=== PATIENT | male | born 1990 | race Caucasian/White ===

== ENCOUNTER 2017-04-18 13:39 | Emergency (ER) | payer BC, OTHER ==
[~2017-04-18] VITALS: Ht 185.4 cm; Wt 79.0 kg
[2017-04-18 13:41] VITALS: Ht 185.4 cm; Wt 79.0 kg
[2017-04-18] MEDS ORDERED: IBUPROFEN 600 MG TAB PO STA (13:59)
--- NOTE | 2017-04-18 13:59 | ERD ---
ER Documentation Chief Complaint Chief Complaint "twisted" L foot yesterday: swelling noted. + pulses HPI 26-year-old male presenting to the emergency department complaining of left foot pain status post twisting mechanism injury that occurred yesterday. Patient admits to having swelling. He denies any medications ROS All systems reviewed and are negative except as per history of present illness. Medications Home Meds Active Scripts Ibuprofen* (Ibuprofen*) 400 Mg Tablet, 400 MG PO Q6H Y for PAIN, #30 TAB Prov:DIEGO PANDEY PA-C 04/18/17 Physical Exam Vitals Vital Signs Date Time Temp Pulse Resp B/P Pulse Ox O2 Delivery O2 Flow Rate FiO2 04/18/17 13:41 98.6 105 16 124/83 98 Physical Exam Const: [] Head: Atraumatic Eyes: Normal Conjunctiva ENT: Normal External Ears, Nose and Mouth. Neck: Full range of motion..~ No meningismus. Resp: Clear to auscultation bilaterally Cardio: Regular rate and rhythm, no murmurs Abd: Soft, non tender, non distended. Normal bowel sounds Skin: No petechiae or rashes Back: No midline or flank tenderness Ext: Patient over the left lateral malleolus Neur: Awake and alert Psych: Normal Mood and Affect Results 24 hrs Current Medications Medications (Trade) Dose Ordered Sig/Dg Route PRN Reason Start Time Stop Time Status Last Admin Dose Admin Ibuprofen (Motrin) 600 mg ONCE STAT PO 04/18/17 13:59 04/18/17 14:04 DC 04/18/17 14:11 Procedures/MDM This is a 26-year-old male presenting to the emergency department with left foot pain likely due to ankle sprain. There is no evidence of compartment syndrome, neurologic injury, vascular injury, open joint, open fracture, tendon laceration, or foreign body due to physical examination and diagnostic testing. XR of the ankle was done and unremarkable. Patient was placed in a posterior splint or gianfranco bandage. Patient's extremity symptoms have stabilized while they have been evaluated in the department and are appropriate for outpatient follow up. Prescription ibuprofen was given to patient, discussed to return to the ED if not improving as expected or worsening symptoms Patient was neurovascularly intact pre and post treatment. Patient understood and agreed with this plan. X-ray Ankle 3V Interpreted by radiologist and myself: Bones: No fracture Joints: No dislocation Splint Assessment: Neurovascularly intact post splint placement with good fit. Departure Diagnosis: Primary Impression: Ankle sprain Condition: Stable DIEGO PANDEY PA-C Apr 18, 2017 13:59
--- NOTE | 2017-04-18 14:43 | RADRPT ---
PROCEDURE: XR Left Ankle CLINICAL INDICATION: Pain TECHNIQUE: Standard 3 view radiographs were submitted. COMPARISON: None FINDINGS: Osseous structures: Well mineralized and intact with no fracture or destructive process identified. Joint spaces: Well maintained with no significant erosions or spurring evident. Soft tissues: There is mild soft tissue swelling seen about the lateral malleolus suspicious for a s prain. IMPRESSION: Left ankle sprain. Physician Gulshan Date Time Electronically viewed and signed by Rian Rausch Physician on 04/18/2017 14:43 /
[2017-04-18] MEDS ORDERED: IBUP400T22 PO (14:49)
== END 2017-04-18 15:17 | disposition home or self-care (01) ==
LOC: FTE 13:39
DX: S93.402A Sprain of unspecified ligament of left ankle, initial encounter (principal); X50.9XXA Other and unspecified overexertion or strenuous movements or postures, initial encounter; Y92.9 Unspecified place or not applicable
CPT/HCPCS: 73610; Z7502; Z7610